=== PATIENT | female | born 1950 | race Caucasian/White ===

== ENCOUNTER 2021-05-17 17:39 | Emergency (ER) | payer MEDICARE ==
[2021-05-17] MEDS ORDERED: Doxycycline 100 MG Cap PO ONE (18:11)
--- NOTE | 2021-05-17 18:15 | EDM.PDOC ---
ED HPI GENERAL MEDICAL PROBLEM - General Chief Complaint: Bite:Animal, Insect Stated Complaint: TICK BITE/RASH Time Seen by Provider: 05/17/21 18:05 Source of Information: Reports: Patient History Limitations: Reports: No Limitations - History of Present Illness INITIAL COMMENTS - FREE TEXT/NARRATIVE: 71-year-old female was bitten by a tick on her left lower flank, she pulled the tick off today and noticed a reddened area around the bite. She feels fine otherwise but wanted to be checked. She is otherwise healthy. She brought the deer tick in, it appears to be a deer tick partially engorged with blood. Onset: Unknown/Unsure Location: Reports: Other (Left flank) Associated Symptoms: Reports: No Other Symptoms - Related Data Allergies Allergy/AdvReac Type Severity Reaction Status Date / Time No Known Allergies Allergy Verified 05/17/21 18:06 Home Meds: Home Meds Levothyroxine 25 mcg PO ACBREAKFAST 05/17/21 [History] atorvaSTATin [Lipitor] 10 mg PO BEDTIME 05/17/21 [History] Past Medical History - Past Health History Medical/Surgical History: Denies Medical/Surgical History - Infectious Disease History Infectious Disease History: Reports: C-Difficile Social & Family History - Tobacco Use Tobacco Use Status *Q: Never Tobacco User - Caffeine Use Caffeine Use: Reports: Coffee ED ROS GENERAL - Review of Systems Review Of Systems: See Below Constitutional: Denies: Fever, Chills, Malaise HEENT: Reports: No Symptoms Respiratory: Reports: No Symptoms GI/Abdominal: Reports: No Symptoms. Denies: Abdominal Pain Skin: Reports: Rash, Erythema, Other (Round 3-1/2 cm oval slightly raised erythematous area surrounding the tick bite, no other rash) Neurological: Denies: Dizziness, Headache ED EXAM, ANIMAL BITE - Physical Exam Exam: See Below Exam Limited By: No Limitations General Appearance: Alert, No Apparent Distress Head: Atraumatic Respiratory/Chest: No Respiratory Distress Extremities: Normal Inspection Neurological: Alert, Oriented Skin Exam: Other (3-1/2 cm round slightly raised erythematous macular reaction on the left lower flank from the bite) Course - Vital Signs Last Recorded V/S: Last Vital Signs Temp 96.8 F L 05/17/21 18:03 Pulse 71 05/17/21 18:03 Resp 16 05/17/21 18:03 BP 124/82 05/17/21 18:03 Pulse Ox 100 05/17/21 18:03 - Orders/Labs/Meds Meds: Medications Discontinued Medications Generic Name Dose Route Start Last Admin Trade Name Kimberley PRN Reason Stop Dose Admin Doxycycline Hyclate 200 mg 05/17/21 18:11 05/17/21 18:16 Doxycycline 100 Mg Cap PO 05/17/21 18:12 200 mg ONETIME ONE Administration - Re-Assessments/Exams Free Text/Narrative Re-Assessment/Exam: 05/17/21 18:14 Tick bite left flank. 1 200 mg doxycycline dose was given and a small amount of hydrocortisone may be helpful with the itching. No further treatment is necessary at this time, she can recheck in the future if she develops systemic symptoms. Departure - Departure Time of Disposition: 18:31 Disposition: Home, Self-Care 01 Clinical Impression: Tick bite of left flank Qualifiers: Encounter type: initial encounter Qualified Code(s): S30.861A - Insect bite (nonvenomous) of abdominal wall, initial encounter - Discharge Information Instructions: Tick Bite Information, Adult Referrals: PCP,None [Primary Care Provider] - Forms: ED Department Discharge Care Plan Goals: A small amount of hydrocortisone may help with itching, keep the wound clean while healing and recheck in the future if you develop more systemic symptoms such as fever or body aches. This is unlikely. Sepsis Event Note (ED) - Evaluation Sepsis Screening Result: No Definite Risk - Focused Exam Vital Signs: Vital Signs Temp Pulse Resp BP Pulse Ox 05/17/21 18:03 96.8 F L 71 16 124/82 100
== END 2021-05-17 18:31 | disposition home or self-care (01) ==
LOC: JP.ED 17:39
DX: S30.861A Insect bite (nonvenomous) of abdominal wall, initial encounter (principal); W57.XXXA Bitten or stung by nonvenomous insect and other nonvenomous arthropods, initial encounter
CPT/HCPCS: 99282; A9270